=== PATIENT | male | born 1965 | race Caucasian/White ===

== ENCOUNTER 2019-07-06 09:17 | Emergency (ER) | payer OTHER ==
[~2019-07-06] VITALS: Ht 185.4 cm; Wt 141.0 kg
[2019-07-06] MEDS ORDERED: DILTIAZEM 125 MG in SODIUM CHLORIDE 0.9% 100 ML IV SCH (09:24)
--- NOTE | 2019-07-06 09:26 | NUR ---
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
[2019-07-06] MEDS ORDERED: SODIUM CHLORIDE FLUSH 10ML SYR IVF ONE (09:30)
[2019-07-06] MEDS ORDERED: DILTIAZEM 5 MG/ML, 5ML IV ONE (09:30)
[2019-07-06] MEDS ORDERED: PROPOFOL 10 MG/ML, 20ML ONE ×2 (09:48)
[2019-07-06 09:58] LABS: BASOPHILS # (AUTO) 0.05 x10^3/uL (0-0.1); BASOPHILS % (AUTO) 1 % (0-1); EOSINOPHILS # (AUTO) 0.18 x10^3/uL (0-0.4); EOSINOPHILS % (AUTO) 2 % (1-7); LYMPHOCYTES # (AUTO) 2.92 x10^3/uL (1-3.4); LYMPHOCYTES % (AUTO) 35 % (22-44); MD NO; MEAN CORPUSCULAR HEMOGLOBIN 30.5 pg (27.5-34.5); MEAN CORPUSCULAR VOLUME 89.6 fL (81-97); MEAN PLATELET VOLUME 7.9 fL (7.4-10.4); MONOCYTES # (AUTO) 0.58 x10^3/uL (0.2-0.8); MONOCYTES % (AUTO) 7 % (2-9); NEUTROPHILS # (AUTO) 4.55 x10^3/uL (1.8-6.8); NEUTROPHILS % (AUTO) 55 % (42-75); PLATELET COUNT 236 x10^3/uL (130-400); RED BLOOD COUNT 4.74 x10^6/uL (4.38-5.82)
[2019-07-06] MEDS ORDERED: PLEASE ENTER ALLERGIES MC SCH (10:00)
[2019-07-06] MEDS ORDERED: PLEASE ENTER HEIGHT AND WEIGHT MC SCH (10:00)
[2019-07-06 10:03] LABS: ALBUMIN 3.3 g/dL (3.4-5.0); ANION GAP 12 mmol/L (5-15); CALCIUM 8.7 mg/dL (8.5-10.1); CHLORIDE 103 mmol/L (98-107); CREATININE 1.63 mg/dL (0.7-1.3)
[2019-07-06] MEDS ORDERED: GLYB5TAB3 PO (10:05)
[2019-07-06] MEDS ORDERED: METF500T17 PO (10:05)
[2019-07-06] MEDS ORDERED: LISI1TAB20 PO (10:05)
[2019-07-06 10:08] LABS: T4 (THYROXINE) 9.3 mcg/dL (4.5-12.1); TROPONIN I 0.018 ng/mL (0.000-0.045)
--- NOTE | 2019-07-06 10:28 | NUR ---
dr alvarado spoke with lesa tapia
--- NOTE | 2019-07-06 11:15 | NUR ---
DILTIAZEM GTT STOPPED PER VERBAL ORDER DR. SARAH
--- NOTE | 2019-07-06 11:24 | NUR ---
[facility] RPT REC'D FROM SC[facility] WALLACE. PT CARDIOVERSION COMPLETED BY DR SARAH WITH EFFECT. PT DENIES TO THIS RN ANY MEMORY OF PROCEDURE. PT VSS, A&0, NAD NOTED.
--- NOTE | 2019-07-06 11:51 | NUR ---
PT MOVED TO ROOM 26. REPORT RC'VD FROM NOHELIA CHAVEZ. PT A&OX4, NO SIGNS OF DISTRESS, HR IN 70s SR.
[2019-07-06 14:00] VITALS: BP 106/70
--- NOTE | 2019-07-06 14:10 | NUR ---
PT STABLE, NO CHANGE IN STATUS. HR REGULAR 70s. D/C INSTRUCTIONS, MEDS & F/U APPT RV'WD WITH PT, HE VERBALIZES UNDERSTANDING. RX GIVEN X2. PER ERP, OKAY FOR PT TO F/U WITH [employer] WHEN HE GETS BACK HOME TO [place]. CAB VOUCHER PROVIDED TO PHARMACY AND TO [employer]. PT AMBULATED OUT OF ED WITHOUT DIFFICULTY.
== END 2019-07-06 14:12 | disposition home or self-care (01) ==
LOC: ED 14:01
DX: I48.92 Unspecified atrial flutter (principal); R07.2 Precordial pain; I10 Essential (primary) hypertension; E11.9 Type 2 diabetes mellitus without complications; Z87.891 Personal history of nicotine dependence
CPT/HCPCS: 36415; 71045; 80048; 82040; 83880; 84436; 84443; 84484; 85025; 92960; 93005; 96365; 96376; 99152; 99291